=== PATIENT | male | born 1960 | race African-American/Black ===

== ENCOUNTER 2020-05-19 15:15 | Emergency (ER) | payer OTHER ==
[~2020-05-19] VITALS: Ht 175.3 cm; Wt 83.5 kg
[2020-05-19 16:45] LABS: URINE BILIRUBIN NEGATIVE (Negative); URINE BLOOD NEGATIVE (Negative); URINE CLARITY CLEAR; URINE COLOR YELLOW; URINE GLUCOSE-RANDOM* 3+ (Negative); URINE KETONES 2+ (Negative); URINE LEUKOCYTES-REFLEX NEGATIVE (Negative); URINE NITRITE-REFLEX NEGATIVE (Negative); URINE PROTEIN (DIPSTICK) NEGATIVE (Negative); URINE UROBILINOGEN 0.2 E.U./dl (0.2-1.0)
[2020-05-19 17:17] LABS: ABSOLUTE NEUTROPHILS 5.2 thou/uL (1.4-8.2); BASOPHILS 0.8 % (0.0-2.0); EOSINOPHILS 0.4 % (0.0-3.0); HEMATOCRIT 45.4 % (42.0-52.0); LYMPHOCYTES 24.8 % (24.0-44.0); MCH 31.1 pg (26.0-34.0); MCHC 33.1 g/dL (28.0-37.0); MCV 94.1 fL (80.0-100.0); MONOCYTES 8.2 % (1.0-8.0); PLATELET COUNT 236 thou/uL (150-400); POLYS 65.8 % (36.0-66.0); RBC 4.82 mil/uL (4.50-6.00); RDW 13.5 % (10.5-14.5); WBC 7.9 thou/uL (4.0-11.0)
[2020-05-19 17:25] LABS: CALCIUM 9.4 mg/dL (8.5-10.1); CREATININE 1.7 mg/dL (0.7-1.3); POTASSIUM 4.3 mmol/L (3.5-5.1)
[2020-05-19 17:30] LABS: ALBUMIN 4.3 g/dL (3.4-5.0); TOTAL BILIRUBIN 0.6 mg/dL (0.2-1.0); TOTAL PROTEIN 7.7 g/dL (6.4-8.2)
[2020-05-19] MEDS ORDERED: NOVOLOG MI100 UNIT/M SUBQ (20:21)
[2020-05-19] MEDS ORDERED: GLIPIZIDE 10 MG10 MG PO (20:21)
[2020-05-19] MEDS ORDERED: [UNRECOGNIZED DRUG - OTHER] MISCELL (20:23)
[2020-05-19 21:56] VITALS: BP 125/69
[2020-05-21 06:06] LABS: ESTIMATED AVERAGE GLUCOSE > 398 mg/dL (()); GLYCOHEMOGLOBIN (HGB A1C) > 15.5 % (4.8-5.6)
== END 2020-05-19 22:04 | disposition home or self-care (01) ==
LOC: ER 15:15
PROVIDERS: Emergency Medicine; Physician Assistant
DX: E11.65 Type 2 diabetes mellitus with hyperglycemia (principal); E86.0 Dehydration; Z96.653 Presence of artificial knee joint, bilateral